=== PATIENT | male | born 1980 | race African-American/Black ===

== ENCOUNTER 2018-06-17 17:08 | Emergency (ER) | payer MEDICAID, OTHER ==
[2018-06-17] MEDS ORDERED: Acetaminophen 500 MG TAB ONE (17:54)
== END 2018-06-17 18:35 | disposition home or self-care (01) ==
LOC: BURERS 17:08
DX: J11.1 Influenza due to unidentified influenza virus with other respiratory manifestations (principal); E11.9 Type 2 diabetes mellitus without complications; K21.9 Gastro-esophageal reflux disease without esophagitis; J45.909 Unspecified asthma, uncomplicated; F17.210 Nicotine dependence, cigarettes, uncomplicated; Z79.899 Other long term (current) drug therapy; Z79.84 Long term (current) use of oral hypoglycemic drugs
CPT/HCPCS: 87804; 99283

== ENCOUNTER 2019-06-04 14:36 | Outpatient (CLI) | payer OTHER ==
--- NOTE | 2019-06-04 17:10 | RAD ---
RIGHT ANKLE THREE VIEWS: 06/04/19 No acute fracture was seen, and the joint itself appears normal. On the lateral view there is a littl e bony fragmentation on the dorsum of the talus near the talonavicular joint. This may have been an a vulsion from old trauma. The calcaneus appears intact. IMPRESSION: 1. No abnormalities around the ankle joint proper. 2. Possible old injury near the dorsum of the talonavicular joint. POS: HOME
== END 2019-06-04 14:37 | disposition home or self-care (01) ==
LOC: BURRAD 14:36
PROVIDERS: ATTEND Physician Assistant
DX: M25.571 Pain in right ankle and joints of right foot (principal)

== ENCOUNTER 2019-12-25 20:50 | Emergency (ER) | payer MEDICAID, OTHER ==
[2019-12-25] MEDS ORDERED: diphenhydrAMINE 50 MG/ML VIAL ONE (21:52)
[2019-12-25] MEDS ORDERED: Morphine 10 MG/ML VIAL ONE (21:52)
[2019-12-25 21:58] LABS: Bilirubin Negative (Negative); Blood, Urine Negative (Negative); Clarity Clear (Clear); Glucose, Urine (Dipstick) Negative (Negative); Ketone, Urine Negative (Negative); Leukocyte Negative (Negative); Nitrite Negative (Negative); Protein, Urine (Dipstick) Negative (Neg-Trace); Specific Gravity, Urine 1.025 (1.005-1.030)
[2019-12-25 22:03] LABS: #Basophils 0.1 thou/uL (0.0-0.2); #Eosinphils 0.2 thou/uL (0.0-0.7); #Lymphocytes 2.6 thou/uL (1.20-3.40); #Monocytes 0.8 thou/uL (0.11-0.59); #Neutrophils 3.3 thou/uL (1.40-6.50); %Basophils 1.3 % (0.0-1.0); %Eosinophils 2.9 % (0.0-10.0); %Lymphocytes 37.9 % (21.0-51.0); %Neutrophils 46.9 % (42.0-75.0); Mean Corpuscular HGB CONC 30.9 g/dL (32.0-36.0); Mean Corpuscular Hemoglobin 27.4 pg (27.0-31.0); Mean Corpuscular Volume 88.8 fL (78.0-98.0); Mean Platelet Volume 11.9 fL (7.4-10.4); Platelet Count 165 thou/uL (130-400); RBC Distribution Width 13.4 % (11.5-14.5); Red Blood Cell (RBC) Count 5.11 mill/uL (4.70-6.10)
[2019-12-25 22:20] LABS: ALT (SGPT) 37 U/L (8-55); AST (SGOT) 30 U/L (5-34); Albumin 4.4 g/dL (3.5-5.0); Alkaline Phosphatase 66 U/L (40-110); Anion Gap 13 mmol/L (10-20); BUN (Urea Nitrogen) 14 mg/dL (8.9-20.6); Bilirubin, Total 0.3 mg/dL (0.2-1.2); Calc. Creatinine Clearance 0 mL/min (70-130); Carbon Dioxide 23 mmol/L (22-29); Chloride 108 mmol/L (98-107); Estimated GFR-MDRD 89; Globulin 2.8 g/dL (2.4-3.5); Glucose 99 mg/dL (70-105); Potassium 3.3 mmol/L (3.5-5.1); Protein, Total 7.2 g/dL (6.0-8.3); Sodium 141 mmol/L (136-145)
== END 2019-12-25 22:57 | disposition short-term general hospital (02) ==
LOC: BURERS 20:50
DX: G83.4 Cauda equina syndrome (principal); R33.9 Retention of urine, unspecified; E11.9 Type 2 diabetes mellitus without complications; K21.9 Gastro-esophageal reflux disease without esophagitis; J45.909 Unspecified asthma, uncomplicated; F17.210 Nicotine dependence, cigarettes, uncomplicated; Z79.84 Long term (current) use of oral hypoglycemic drugs; Z79.899 Other long term (current) drug therapy
CPT/HCPCS: 51702; 80053; 81003; 85025; 85652; 86140; 94760; 96374; 96375; J1200; J2270

== ENCOUNTER 2022-02-13 13:24 | Emergency (ER) | payer OTHER | END 2022-02-13 13:41 | disposition home or self-care (01) | LOC: BURERS 13:24 | DX: L03.211 Cellulitis of face (principal); E11.9 Type 2 diabetes mellitus without complications; K21.9 Gastro-esophageal reflux disease without esophagitis; J45.909 Unspecified asthma, uncomplicated; F17.210 Nicotine dependence, cigarettes, uncomplicated | CPT/HCPCS: 99283 ==

== ENCOUNTER 2022-05-03 20:14 | Emergency (ER) | payer OTHER ==
[2022-05-03] MEDS ORDERED: Doxycycline 100 MG CAP ONE (22:03)
== END 2022-05-03 22:19 | disposition home or self-care (01) ==
LOC: BURERS 20:14
DX: L03.211 Cellulitis of face (principal); K21.9 Gastro-esophageal reflux disease without esophagitis; E11.9 Type 2 diabetes mellitus without complications; F17.210 Nicotine dependence, cigarettes, uncomplicated
CPT/HCPCS: 70486